=== PATIENT | female | born 1975 | race Caucasian/White ===

== ENCOUNTER → 2018-09-02 | Outpatient (CLI) | payer OTHER ==
--- NOTE | 2018-09-06 20:30 | Diagnostic Imaging Report ---
INDICATION: Routine screening. Comparison is made with prior mammogram from 07/01/2017. 2-D and 3-D bilateral screening mammography was performed with CAD. The current study was also evaluated with a Computer Aided Detection (CAD) system. FINDINGS: Both breasts are heterogeneously dense, limiting the sensitivity of mammography. Bilateral breast implants are again noted. Implant contours remain stable. No spiculated mass or malignant-appearing microcalcifications are seen. The axillae are unremarkable. IMPRESSION: No mammographic features suspicious for malignancy are identified. ACR BI-RADS Category 2: Benign findings. Result letter will be mailed to the patient. Note: At least 10% of breast cancer is not imaged by mammography. Dictated by: Dictated on workstation # [id number]
== END ==
LOC: RAD 15:38
PROVIDERS: ATTEND Nurse Practitioner Family
DX: Z12.31 Encounter for screening mammogram for malignant neoplasm of breast (principal)
CPT/HCPCS: 77067

== ENCOUNTER 2018-10-25 06:40 | Emergency (ER) | payer OTHER ==
[~2018-10-25] VITALS: Ht 160 cm; Wt 59.0 kg
--- NOTE | 2018-10-25 06:50 | ED General ---
General Stated Complaint: EXTERNAL HEMRRHOID NEEDING DRAINED History of Present Illness Date Seen by Provider: Oct 25, 2018 Time Seen by Provider: 06:49 Initial Comments Patient is a 43 y/o female who presents to the ER this morning requesting help with a hemorrhoid. She has hx of chronic constipation and has had intermittent hemorrhoids. Today she states that one became flared and painful over the last 24 hours. Has not previously required thrombectomy in the past. No fever or chills. She does not take medications for constipation despite that she endorses this as a chronic problem. Allergies and Home Medications Allergies Coded Allergies: No Known Drug Allergies (Unverified , 10/25/18) Home Medications Docusate Sodium 100 Mg Capsule, 100 MG PO BID PRN for constipation Prescribed by: GENEVIEVE RITCHIE on 10/25/18 0707 Hydrocortisone/Pramoxine 30 Gm Cream.appl, 30 GM RC BID Prescribed by: GENEVIEVE RITCHIE on 10/25/18 0709 Polyethylene Glycol 3350 17 Gm Powd.pack, 17 GM PO DAILY Prescribed by: GENEVIEVE RITCHIE on 10/25/18 0709 Witch Kylie 1 Each Med..pad, 1 EACH TP BID Prescribed by: GENEVIEVE RITCHIE on 10/25/18 0710 Patient Home Medication List Home Medication List Reviewed: Yes Review of Systems Review of Systems Constitutional: no symptoms reported EENTM: no symptoms reported Respiratory: no symptoms reported Cardiovascular: no symptoms reported Genitourinary: no symptoms reported Musculoskeletal: no symptoms reported Skin: no symptoms reported Past Yfhkgav-Edysyg-Cmbimb Hx Patient Social History Recent Foreign Travel: No Contact w/Someone Who Travel: No Physical Exam Vital Signs Capillary Refill : Height, Weight, BMI Height: '" Weight: lbs. oz. kg; BMI Method: General Appearance: No Apparent Distress, WD/WN Neck: Full Range of Motion Respiratory: Lungs Clear, Normal Breath Sounds Cardiovascular: Regular Rate, Rhythm Gastrointestinal: Non Tender, Soft Rectal: Other (multiple soft hemorrhoids that are not inflamed. single external thrombosed hemorrhoid is present.) Back: Normal Inspection Extremity: Normal Capillary Refill Progress/Results/Core Measures Suspected Sepsis SIRS Temperature: Pulse: Respiratory Rate: Blood Pressure / Mean: Results/Orders My Orders Orders - GENEVIEVE RITCHIE DO Lidocaine/Epi 1% 1:100,000 (Xylocaine /E (10/25/18 07:00) Lidocaine/Epi 2% 1:100,000 (Xylocaine/Ep (10/25/18 07:03) Medications Given in ED Current Medications Medications Dose Ordered Sig/Graham Route Start Time Stop Time Status Last Admin Dose Admin Lidocaine/ Epinephrine 20 ml STK-MED ONCE .ROUTE 10/25/18 07:03 10/25/18 07:07 DC 10/25/18 07:10 20 ML Vital Signs/I&O Capillary Refill : Progress Note : Time: 07:04 Progress Note Patient is seen and examined. I discussed options for treatment of her thrombosed hemorrhoid including watchful waiting with pain medications vs thrombectomy. Patient prefers to proceed with thrombectomy. Symptoms less than 24 hours so procedure is indicated. 07:15: Procedure note. Female RN accompanying the procedure. Hemorrhoid is cleansed with betadine. Local anesthesia is provided with 2% lidocaine with epinephrine. #15 blade scalpel used to make small elliptical incision. small amount of clot tissue is removed from the hemorrhoid. Following this, it was irrigated with normal saline and a few additional smaller clot fragments were washed out. Wound was hemostatic. Total length of wound was 0.5 cm. Wound was hemostatic following the procedure and hemorrhoid was soft. 07:25: Patient discharged to home with Rx for miralax, docusate, analpram 2.5% , and Tucks pads. Constipation control discussed with patient. All of her questions answered prior to discharge. Patient had adequate pain control during the procedure. Departure Impression Primary Impression: Hemorrhoids Disposition: 01 HOME, SELF-CARE Condition: Improved Departure-Patient Inst. Referrals: YESENIA LAWS MD (PCP/Family) Primary Care Physician Maribell Espinal (Tucks) 1 Each Med..pad 1 EACH TP BID for Constipation for 30 Days, #60 PKT 1 Refill Prov: GENEVIEVE RITCHIE DO 10/25/18 Hydrocortisone/Pramoxine (Analpram Hc 2.5% Cream) 30 Gm Cream.appl 30 GM RC BID for Hemorrhoids, #1 APPLIC 1 Refill Prov: GENEVIEVE RITCHIE DO 10/25/18 Polyethylene Glycol 3350 (Miralax) 17 Gm Powd.pack 17 GM PO DAILY for constipation for 30 Days, #30 EACH 1 Refill Prov: GENEVIEVE RITCHIE DO 10/25/18 Docusate Sodium (Docusate Sodium) 100 Mg Capsule 100 MG PO BID PRN for constipation for 30 Days, #60 CAP 1 Refill Prov: GENEVIEVE RITCHIE DO 10/25/18 GENEVIEVE RITCHIE DO Oct 25, 2018 06:50
[2018-10-25] MEDS ORDERED: LIDOCAINE/EPI 1%-1:100,000 (XYLOCAINE) 20ML INJ ONE (07:00)
[2018-10-25] MEDS ORDERED: LIDOCAINE/EPI 2% 1:100,00 (XYLOCAINE) 20 ML VIAL ONE (07:03)
[2018-10-25] MEDS ORDERED: DOCU100C37 PO (07:07)
[2018-10-25] MEDS ORDERED: POLY17PO6 PO (07:09)
[2018-10-25] MEDS ORDERED: HC A30CR RC (07:09)
[2018-10-25] MEDS ORDERED: WITC1MED3 TP (07:10)
[2018-10-25 07:30] VITALS: BP 134/72
== END 2018-10-25 07:30 | disposition home or self-care (01) ==
LOC: EDUNIT# 06:40 → ER FS 06:45
DX: K64.8 Other hemorrhoids (principal); Z79.51 Long term (current) use of inhaled steroids; Z87.19 Personal history of other diseases of the digestive system
CPT/HCPCS: 45020

== ENCOUNTER → 2019-04-04 | Outpatient (CLI) | payer OTHER ==
[~2019-04-04] MED LIST: DOCU100C37 PO; HC A30CR RC; POLY17PO6 PO; WITC1MED3 TP
--- NOTE | 2019-04-04 11:04 | Diagnostic Imaging Report ---
INDICATION: Left ring finger pain. Injury when dog leash twisted ring finger. Swelling. TECHNIQUE: Single view hand with 3 views left ring finger, 10:36 AM. CORRELATION STUDY: None FINDINGS: Two screws of the 4th metacarpal head are present. The ring remains over the base of ring finger obscuring evaluation of proximal phalanx. The visualized osseous structures of the 4th finger demonstrate no acute fracture. Alignment anatomic. Joint space maintained. Remaining osseous structures of the hand otherwise intact and unremarkable. IMPRESSION: 1. Negative for acute bony abnormality about the left ring finger and/or hand. Dictated by: Dictated on workstation # [id number]
== END ==
LOC: RAD FS 09:58
PROVIDERS: ATTEND Nurse Practitioner
DX: S69.92XA Unspecified injury of left wrist, hand and finger(s), initial encounter (principal); X50.1XXA Overexertion from prolonged static or awkward postures, initial encounter
CPT/HCPCS: 73140

== ENCOUNTER → 2019-09-15 | Outpatient (CLI) | payer OTHER ==
--- NOTE | 2019-09-15 13:00 | Diagnostic Imaging Report ---
INDICATION: Routine screening. COMPARISON: 09/07/2018 and 07/01/2017. TECHNIQUE: 2D and 3D bilateral screening mammography was performed with CAD. FINDINGS: Bilateral subpectoral breast implants are again noted. The implant contours remain smooth. Scattered fibroglandular densities throughout both breasts are noted. Tiny nodular densities in the inferior left breast just medial to the nipple line at posterior depth are stable. No dominant mass or malignant appearing microcalcifications are seen. The axillae are unremarkable. IMPRESSION: No mammographic features suspicious for malignancy are identified. ACR BI-RADS Category 2: Benign findings. Result letter will be mailed to the patient. Note: At least 10% of breast cancer is not imaged by mammography. Dictated by: Dictated on workstation # [id number]
== END ==
LOC: RAD 11:13
PROVIDERS: ATTEND Nurse Practitioner
DX: Z12.31 Encounter for screening mammogram for malignant neoplasm of breast (principal); F41.9 Anxiety disorder, unspecified; M75.52 Bursitis of left shoulder; G43.719 Chronic migraine without aura, intractable, without status migrainosus; G47.00 Insomnia, unspecified; G47.419 Narcolepsy without cataplexy; M79.673 Pain in unspecified foot; N39.3 Stress incontinence (female) (male)
CPT/HCPCS: 77067